=== PATIENT | female | born 1960 | race Hispanic/Latino ===

== ENCOUNTER 2017-07-13 08:27 | Outpatient (CLI) | payer OTHER ==
--- NOTE | 2017-07-13 14:49 | XRay Report ---
XRAY LEFT KNEE 4 THREE VIEWS: 07/13/17 CLINICAL: Left knee pain. FINDINGS: Mild osteopenia. No fracture or dislocation. Medial joint space narrowing with early osteophyte formation. Slight widening of the lateral joint space. Tiny patellofemoral osteophytes.No joint effusion.Normal soft tissues. IMPRESSION: Mild osteoarthritis.
== END 2017-07-13 08:28 | disposition home or self-care (01) ==
LOC: SPVIMAG 08:27
PROVIDERS: ATTEND Orthopaedic Surgery
DX: M17.12 Unilateral primary osteoarthritis, left knee (principal); M85.862 Other specified disorders of bone density and structure, left lower leg

== ENCOUNTER 2020-10-13 13:06 | Outpatient (CLI) | payer OTHER ==
--- NOTE | 2020-10-13 14:52 | Mammography Report ---
DIGITAL SCREENING MAMMOGRAM WITH CAD, 10/13/2020 CLINICAL INFORMATION / INDICATION: Routine screening mammography. SCREENING MAMMO TECHNIQUE: Digital bilateral 2D mammography was obtained in the craniocaudal and mediolateral obliqu e projections. This examination was interpreted with the benefit of Computer-Aided Detection analysis . COMPARISON: 09/30/2016 through 10/08/2019. FINDINGS: Breast Density: There are scattered areas of fibroglandular density. No dominant mass, suspicious calcifications, or architectural distortion in either breast. Benign-appearing changing nodularity bilaterally is again identified. There is a left biopsy clip. No new abnormality is seen. IMPRESSION: No mammographic evidence of malignancy. Follow up recommendation: Routine yearly BI-RADS Category 2: Benign. A "normal" or negative report should not discourage follow up or biopsy of a clinically significant f inding. A written summary of these findings will be mailed to the patient. The patient will be entered into a mammography reporting system which will generate a reminder letter for the patient's next appointmen t at the appropriate interval. The [employer] recommends yearly mammograms starting at age 40 and continuing as l luis as a woman is in good health. Breast MRI is recommended for women with an approximate 20-25% or greater lifetime risk of breast cancer, including women with a strong family history of breast or [place] cancer or who have been treated for Hodgkin's disease. Signer Name: Haroon Corbett MD Signed: 10/13/2020 2:47 PM Workstation Name: [id number]
== END 2020-10-13 13:07 | disposition home or self-care (01) ==
LOC: SPVWC 13:06
PROVIDERS: ATTEND Surgery
DX: Z12.31 Encounter for screening mammogram for malignant neoplasm of breast (principal); N64.89 Other specified disorders of breast
CPT/HCPCS: 77067

== ENCOUNTER 2021-10-16 11:29 | Outpatient (CLI) | payer OTHER | END 2021-10-16 11:30 | disposition home or self-care (01) | LOC: MAMMO 11:29 | PROVIDERS: ATTEND Internal Medicine | DX: Z12.31 Encounter for screening mammogram for malignant neoplasm of breast (principal) | CPT/HCPCS: 77067 ==